=== PATIENT | female | born 1970 | race Hispanic/Latino ===

== ENCOUNTER 2018-01-11 13:15 | Emergency (ER) | payer OTHER ==
[2018-01-11 13:16] VITALS: BMI 43.2
[2018-01-11] MEDS ORDERED: Sodium Chloride 0.9% 1,000 ML IV ONE (13:34)
[2018-01-11 14:09] LABS: BASO # 0.1 K/uL (0.0-0.2); BASO % 0.8 % (0.0-2.0); EOS # 0.1 K/uL (0.0-0.7); EOS % 0.7 % (0.0-4.0); HEMOGLOBIN 13.5 g/dL (11.0-16.0); LYMPH # 1.5 K/uL (1.0-4.3); LYMPH % 15.9 % (20.0-40.0); MEAN CELL VOLUME 84.9 fL (81.0-99.0); MEAN CORPUSCULAR HEMOGLOBIN 28.4 pg (27.0-31.0); MEAN CORPUSCULAR HGB CONC 33.5 g/dL (33.0-37.0); MEAN PLATELET VOLUME 9.6 fL (7.2-11.7); MONO # 0.5 K/uL (0.0-0.8); MONO % 5.5 % (0.0-10.0); NEUT # 7.5 K/uL (1.8-7.0); NEUT % 77.1 % (50.0-75.0); NRBC % 0.1 % (0.0-2.0); RBC 4.76 Mil/uL (3.80-5.20); RED CELL DISTRIBUTION WIDTH 14.4 % (11.5-14.5); WHITE BLOOD COUNT 9.7 K/uL (4.8-10.8)
[2018-01-11 14:14] LABS: SQUAMOUS EPITHIAL 2 /hpf (0-5); URINE BACTERIA RARE (<OCC); URINE BILIRUBIN NEGATIVE (NEGATIVE); URINE BLOOD NEGATIVE (NEGATIVE); URINE CLARITY Clear (Clear); URINE COLOR Yellow (YELLOW); URINE GLUCOSE (UA) 3+ mg/dL (Normal); URINE LEUKOCYTE ESTERASE TRACE Leu/uL (Negative); URINE PROTEIN NEGATIVE (NEGATIVE); URINE UROBILINOGEN NORMAL mg/dL (0.2-1.0)
[2018-01-11 14:15] LABS: HCG,QUALITATIVE URINE NEGATIVE (NEGATIVE)
--- NOTE | 2018-01-11 14:15 | C.PDOC ---
History Of Present Illness 47 year old male presents to ED complaining of low blood pressure since yesterday when she visited her PMD. Patient is compliant with her medications and was admitted here from 12/19/17 to 12/20/17. Denies fever, chills, chest pain, cough, shortness of breath, nausea, vomiting, diarrhea, weakness, numbness, polyuria, polydipsia. Time Seen by Provider: 01/11/18 13:25 Chief Complaint (Nursing): High Blood Sugar History Per: Patient History/Exam Limitations: no limitations Onset/Duration Of Symptoms: Days Current Symptoms Are (Timing): Still Present Past Medical History Reviewed: Historical Data, Nursing Documentation, Vital Signs Vital Signs: Last Vital Signs Temp 98.4 F 01/11/18 13:19 Pulse 108 H 01/11/18 13:19 Resp 20 01/11/18 13:19 BP 88/59 L 01/11/18 13:19 Pulse Ox 99 01/11/18 13:19 - Medical History PMH: Anxiety, Arthritis, Asthma, Bipolar Disorder, Depression, Post Traumatic Stress Disorder Denies: Chronic Kidney Disease Surgical History: Tonsillectomy - [facility] Procedures EXCISION OF DESCENDING COLON, ENDO, DIAGN (12/11/17) EXCISION OF STOMACH, ENDO, DIAGN (12/11/17) Family History: States: No Known Family Hx - Social History Hx Alcohol Use: No Hx Substance Use: No - Immunization History Hx Tetanus Toxoid Vaccination: No Hx Influenza Vaccination: No Hx Pneumococcal Vaccination: No Review Of Systems Except As Marked, All Systems Reviewed And Found Negative. Constitutional: Negative for: Fever, Chills Cardiovascular: Negative for: Chest Pain Respiratory: Negative for: Cough, Shortness of Breath Gastrointestinal: Negative for: Nausea, Vomiting, Diarrhea Genitourinary: Positive for: Other ((-) polyuria, (-) polydipsia) Neurological: Negative for: Weakness, Numbness Physical Exam - Physical Exam Appears: Non-toxic, No Acute Distress, Other (Obese) Skin: Warm, Dry, Other (Plump) Oral Mucosa: Moist Neck: Supple Chest: Symmetrical, No Deformity Cardiovascular: Rhythm Regular, No Murmur Respiratory: Normal Breath Sounds, No Rales, No Rhonchi, No Wheezing Gastrointestinal/Abdominal: Soft, No Tenderness Extremity: Normal ROM Pulses: Left Radial: Normal (2/2), Right Radial: Normal (2/2), Left Dorsalis Pedis: Normal (2/2), Right Dorsalis Pedis: Normal (2/2) Neurological/Psych: Oriented x3 ED Course And Treatment - Laboratory Results Result Diagrams: 01/11/18 14:05 01/11/18 14:05 Lab Interpretation: Abnormal (+ elevated glu) Urine POC: Negative ECG: Interpreted By Me ECG Rhythm: Sinus Rhythm ECG Interpretation: Normal Rate From EC O2 Sat by Pulse Oximetry: 99 (RA) Pulse Ox Interpretation: Normal - Radiology CXR: Interpreted by Me CXR Interpretation: Yes: No Acute Disease Reevaluation Time: 15:24 Reassessment Condition: Improved - Physician Consult Information Outcome Of Conversation: 1500: d/w Dr. Barcenas, w/u reviewed, VS's stable, pt feels better. ok to d/c home encouraged to drink more fluids. opt f/u with PMD Medical Decision Making Medical Decision Making: polyuria/polydyspsia prob related to poor glu control and mild dehydration Same in 12/26 urine not c/w Diabetes insipidus PO fluids encouraged and tight glu control. 2/2 peripheral pulses and normal neuro vascular exam argue against signficant symptomatic dehydration/hypo-volemia mild blurry vision improved with glu control Disposition Doctor Will See Patient In The: Office Counseled Patient/Family Regarding: Studies Performed, Diagnosis - Disposition Referrals: [facility] [Outside] [facility] [place] [Outside] [facility] [Outside] Ad Barcenas MD [Staff Provider] - Gian Baker MD [Staff Provider] - Disposition: HOME/ ROUTINE Disposition Time: 15:26 Condition: GOOD Additional Instructions: tighter diet and insulin control of glucose encouraged drink plenty of fluids during the day miley labs/workup today (glucose elevated 313) Follow-up with Dr. Baker or Dr. Barcenas Instructions: Diabetes Diet , Diabetes in Older Adults Forms: [employer] (Mosotho) - Clinical Impression Clinical Impression: Diabetes mellitus, Dehydration symptoms - Scribe Statement The provider has reviewed the documentation as recorded by the Scribe Bandar Keven Provider Attestation: All medical record entries made by the Scribe were at my direction and personally dictated by me. I have reviewed the chart and agree that the record accurately reflects my personal performance of the history, physical exam, medical decision making, and the department course for this patient. I have also personally directed, reviewed, and agree with the discharge instructions and disposition.
[2018-01-11 14:27] VITALS: TEMP 98.4
[2018-01-11 14:30] LABS: ALB/GLOB RATIO 1.4 (1.0-2.1); ALBUMIN 4.4 g/dL (3.5-5.0); ALT/SGPT 28 U/L (9-52); AST/SGOT 23 U/L (14-36); BLOOD UREA NITROGEN 16 mg/dL (7-17); CALCIUM 9.5 mg/dl (8.6-10.4); GFR NON-AFRICAN AMERICAN > 60; LIPASE 42 U/L (23-300)
[2018-01-11 14:48] VITALS: BP 133/71; PULSE 90; RESP 18
--- NOTE | 2018-01-11 14:55 | RAD ---
Date of service: 01/11/2018 HISTORY: Diabetic COMPARISON: None available. FINDINGS: LUNGS: No active pulmonary disease. PLEURA: No significant pleural effusion identified, no pneumothorax apparent. CARDIOVASCULAR: No aortic atherosclerotic calcification present. Normal cardiac size. No pulmonary vascular congestion. OSSEOUS STRUCTURES: No significant abnormalities. VISUALIZED UPPER ABDOMEN: Normal. OTHER FINDINGS: None. IMPRESSION: No acute cardiopulmonary disease appreciated.
[2018-01-11] MEDS ORDERED: (Novolin R) Insulin Human Regular 100 units/ml vial IV STA (15:01)
[2018-01-11 15:21] VITALS: O2SAT 99
[2018-01-11] MEDS ORDERED: (Novolin R) Insulin Human Regular 100 units/ml vial ONE (15:22)
--- NOTE | 2018-01-14 15:39 | CARD ---
APPROVED REPORT Date of service: 01/11/2018 EKG Measurement Heart [id number] <Conclusion> Normal sinus rhythm Normal Electrocardiogram
== END 2018-01-11 15:52 | disposition home or self-care (01) ==
LOC: C.ER 13:15
DX: E11.9 Type 2 diabetes mellitus without complications (principal); E86.0 Dehydration
CPT/HCPCS: 71045; 80053; 81001; 82948; 83690; 84703; 85025; 93005; 96360; 99284; J7030

== ENCOUNTER 2018-02-01 13:03 | Emergency (ER) | payer OTHER ==
[2018-02-01 13:03] VITALS: BMI 43.2
[2018-02-01] MEDS ORDERED: Sodium Chloride 0.9% 1,000 ML IV ONE (15:15)
--- NOTE | 2018-02-01 15:15 | C.PDOC ---
History Of Present Illness 47 years old female with PMHx of diabetes, arthritis, asthma, and bipolar disorder presents to ED for complaints of dizziness, blurry vision and squeezing chest pain that began today. Patient describes symptoms worsen with head move ment. Patient also states Prior to experiencing symptoms she found her blood pressure to be 68/48 then she called her PMD which suggested for her to come to the ER. Patient reports she was admitted for similar complaints 2 weeks ago. Denies fever, chills, nausea, or vomiting. Patient also reports getting checked in the past for heart problems by a computer science teacher and exams were all negative. Patient admitted in the past for hypotension. PMD: * Gian Baker Time Seen by Provider: 02/01/18 14:53 Chief Complaint (Nursing): Dizziness/Lightheaded History Per: Patient History/Exam Limitations: no limitations Onset/Duration Of Symptoms: Hrs Current Symptoms Are (Timing): Still Present Associated Symptoms Preceding Syncopal Episode: No Predromal Symptoms (Sudden Onset) Seizure Or Post-ictal Symptoms: None Possible Causative Factor(s): Lightheaded W/Change In Head Position Fall Associated With With Symptoms: No Recent travel outside of the [place]: No - Symptoms Of CVA Recent Aspirin Use: Unknown Current Coumadin Use?: Unknown Recent Head Trauma: No Past Medical History Reviewed: Historical Data, Nursing Documentation, Vital Signs Vital Signs: Last Vital Signs Temp 98.8 F 02/01/18 13:35 Pulse 79 02/01/18 14:40 Resp 20 02/01/18 14:40 BP 88/49 L 02/01/18 14:40 Pulse Ox 100 02/01/18 14:40 - Medical History PMH: Anxiety, Arthritis, Asthma, Bipolar Disorder, Depression, Post Traumatic Stress Disorder Surgical History: Tonsillectomy - [facility] Procedures EXCISION OF DESCENDING COLON, ENDO, DIAGN (12/11/17) EXCISION OF STOMACH, ENDO, DIAGN (12/11/17) Family History: States: Unknown Family Hx - Social History Hx Alcohol Use: No Hx Substance Use: No - Immunization History Hx Tetanus Toxoid Vaccination: No Hx Influenza Vaccination: No Hx Pneumococcal Vaccination: No Review Of Systems Constitutional: Negative for: Fever, Chills Eyes: Positive for: Vision Change Cardiovascular: Positive for: Chest Pain Gastrointestinal: Negative for: Nausea, Vomiting, Diarrhea Skin: Negative for: Rash Neurological: Positive for: Dizziness. Negative for: Weakness, Numbness Physical Exam - Physical Exam Appears: Non-toxic, No Acute Distress, Other (Awake and alert. Cooperative. ) Skin: Normal Color, Warm, Dry, No Rash Head: Atraumatic, Normacephalic Eye(s): bilateral: Other (Conjunctiva [place] ) Oral Mucosa: Moist Neck: Normal ROM, Supple Chest: Symmetrical, No Tenderness Cardiovascular: Rhythm Regular, No Murmur Respiratory: Normal Breath Sounds, No Rales, No Rhonchi, No Wheezing Gastrointestinal/Abdominal: Soft, No Tenderness, No Distention, Other (Obese ) Extremity: Normal ROM Extremity: Bilateral: Atraumatic, Normal Color And Temperature, Normal ROM Pulses: Left Radial: Normal, Right Radial: Normal Neurological/Psych: Oriented x3, Normal Speech Gait: Steady ED Course And Treatment - Laboratory Results Result Diagrams: 02/01/18 15:35 02/01/18 15:35 O2 Sat by Pulse Oximetry: 100 (RA) Pulse Ox Interpretation: Normal Medical Decision Making Medical Decision Making: Plan: * IV fluids * Blood work * Urinalysis EKG: * Normal sinus rhythm 76 bpm * No ST elevations or depressions Disposition Counseled Patient/Family Regarding: Need For Followup - Disposition Disposition: HOME/ ROUTINE Disposition Time: 17:06 Condition: STABLE Additional Instructions: Follow up with your doctor in order to evaluate the cause of your low blood pressure. Instructions: Low Blood Pressure (DC) Forms: [facility] (Macanese), General Discharge Instructions - POA Present On Arrival: None - Clinical Impression Clinical Impression: Near syncope, Hypotension - Scribe Statement The provider has reviewed the documentation as recorded by the Ciprianoibglo Owens All medical record entries made by the Ciprianoibglo were at my direction and personally dictated by me. I have reviewed the chart and agree that the record accurately reflects my personal performance of the history, physical exam, medical decision making, and the department course for this patient. I have also personally directed, reviewed, and agree with the discharge instructions and disposition.
[2018-02-01 15:45] LABS: BASO % 0.3 % (0.0-2.0); EOS # 0.1 K/uL (0.0-0.7); EOS % 0.6 % (0.0-4.0); HEMOGLOBIN 12.7 g/dL (11.0-16.0); LYMPH # 1.6 K/uL (1.0-4.3); LYMPH % 17.6 % (20.0-40.0); MEAN CELL VOLUME 85.2 fL (81.0-99.0); MEAN CORPUSCULAR HEMOGLOBIN 28.5 pg (27.0-31.0); MEAN CORPUSCULAR HGB CONC 33.4 g/dL (33.0-37.0); MEAN PLATELET VOLUME 9.6 fL (7.2-11.7); MONO # 0.5 K/uL (0.0-0.8); MONO % 5.9 % (0.0-10.0); NEUT # 6.9 K/uL (1.8-7.0); NEUT % 75.6 % (50.0-75.0); RBC 4.46 Mil/uL (3.80-5.20); WHITE BLOOD COUNT 9.2 K/uL (4.8-10.8)
[2018-02-01 15:57] LABS: BLOOD UREA NITROGEN 14 mg/dL (7-17); CALCIUM 9.4 mg/dl (8.6-10.4); GFR NON-AFRICAN AMERICAN > 60
[2018-02-01 16:01] LABS: HCG,QUALITATIVE URINE NEGATIVE (NEGATIVE)
[2018-02-01 16:06] LABS: SQUAMOUS EPITHIAL 15 /hpf (0-5); URINE BILIRUBIN NEGATIVE (NEGATIVE); URINE BLOOD 3+ (NEGATIVE); URINE CLARITY Hazy (Clear); URINE COLOR Amber (YELLOW); URINE GLUCOSE (UA) 3+ mg/dL (Normal); URINE LEUKOCYTE ESTERASE NEG Leu/uL (Negative); URINE PROTEIN 2+ mg/dL (NEGATIVE)
[2018-02-01 17:36] VITALS: TEMP 98.2
[2018-02-01 19:01] VITALS: BP 132/73; PULSE 68; RESP 18; O2SAT 100
--- NOTE | 2018-02-03 21:15 | CARD ---
APPROVED REPORT Date of service: 02/01/2018 EKG Measurement Heart [id number] <Conclusion> Normal sinus rhythm Possible Left atrial enlargement Borderline ECG
== END 2018-02-01 19:01 | disposition home or self-care (01) ==
LOC: C.ER 13:03
DX: R55 Syncope and collapse (principal); I95.9 Hypotension, unspecified
CPT/HCPCS: 80048; 81001; 82948; 84484; 84703; 85025; 93005; 96360; 99285; J7030

== ENCOUNTER 2018-03-25 09:31 | Emergency (ER) | payer OTHER ==
[2018-03-25 09:31] VITALS: BMI 43.2
--- NOTE | 2018-03-25 10:42 | C.PDOC ---
History Of Present Illness 47 y/o female, with history of diabetes, comes in complaining of flu-like symptoms since 4 days ago consisting of headache, nausea, cough, congestion, decreased appetite, and diarrhea. States she thinks she's having fever but only at night, but patient has not taken her temperature. Patient has tried some antihistamines and motrin but hasn't had much relief. She admits she had sick contacts at home. She reports her blood sugar has been okay. HPI: Influenza Time Seen by Provider: 03/25/18 10:01 Chief Complaint: Flu-like Symptoms History Per: Patient Exam Limitations: no limitations Onset/Duration Of Symptoms: Days Past Medical History Reviewed: Historical Data, Nursing Documentation, Vital Signs Vital Signs: Last Vital Signs Temp 98.2 F 03/25/18 09:41 Pulse 87 03/25/18 09:41 Resp 18 03/25/18 09:41 BP 104/72 03/25/18 09:41 Pulse Ox 100 03/25/18 09:41 - Medical History PMH: Anxiety, Arthritis, Asthma, Bipolar Disorder, Depression, Post Traumatic Stress Disorder Denies: Chronic Kidney Disease Surgical History: Tonsillectomy - [facility] Procedures EXCISION OF DESCENDING COLON, ENDO, DIAGN (12/11/17) EXCISION OF STOMACH, ENDO, DIAGN (12/11/17) Family History: States: No Known Family Hx - Social History Hx Alcohol Use: No Hx Substance Use: No - Immunization History Hx Tetanus Toxoid Vaccination: No Hx Influenza Vaccination: No Hx Pneumococcal Vaccination: No Review Of Systems Constitutional: Positive for: Fever (subjective), Other (Decreased appetite) ENT: Positive for: Nose Congestion Cardiovascular: Negative for: Chest Pain Respiratory: Positive for: Cough. Negative for: Shortness of Breath Gastrointestinal: Positive for: Nausea, Diarrhea. Negative for: Vomiting Skin: Negative for: Rash Neurological: Positive for: Headache Physical Exam - Physical Exam Appears: Non-toxic, No Acute Distress Skin: Warm, Dry Head: Atraumatic, Normacephalic Eye(s): bilateral: Normal Inspection Ear(s): Bilateral: Normal Oral Mucosa: Moist Throat: Normal, No Erythema, No Exudate, Other (uvula midline) Neck: Supple Chest: Symmetrical Cardiovascular: Rhythm Regular, No Murmur Respiratory: Normal Breath Sounds, No Rales, No Rhonchi, No Wheezing Gastrointestinal/Abdominal: Soft, No Tenderness Extremity: Bilateral: Atraumatic, Normal Color And Temperature, Normal ROM Neurological/Psych: Oriented x3, Normal Speech Medical Decision Making Medical Decision Making: Plan: --Tylenol PO Patient medicated in the ED. Appears nontoxic, in no distress. Patient has had symptoms for over 72 hours, tamiflu would not be beneficial, so flu swab d eferred. Advised supportive care (NSAIDs, tylenol, fluids, rest). Return to the ED for any new or worsening symptoms. - ECG O2 Sat by Pulse Oximetry: 100 (RA) Pulse Ox Interpretation: Normal Disposition - Disposition Disposition: HOME/ ROUTINE Disposition Time: 11:52 Condition: STABLE Additional Instructions: STEFAN VILLEGAS, thank you for letting us take care of you today. Your provider was Ary Travis MD and you were treated for DIARRHEA/BODY PAIN. The emergency medical care you received today was directed at your acute symptoms. If you were prescribed any medication, please fill it and take as directed. It may take several days for your symptoms to resolve. Return to the Emergency Department if your symptoms worsen, do not improve, or if you have any other problems. Please contact your doctor or call one of the physicians/clinics you have been referred to that are listed on the Patient Visit Information form that is included in your discharge packet. Bring any paperwork you were given at discharge with you along with any medications you are taking to your follow up visit. Our treatment cannot replace ongoing medical care by a primary care provider outside of the emergency department. Thank you for allowing the [facility] team to be part of your care today. If you had an X-Ray or CT scan: A Radiologist will review the ED reading if any change in treatment is needed we will contact you. If you had a blood, urine, or wound culture: It will take several days for the results, if any change in treatment is needed we will contact you. If you had an STI test: It will take 48 hours for the results. Please call after 1 week if you have not heard back. Instructions: Viral Syndrome (DC) Forms: [employer] (Uzbek) - Clinical Impression Clinical Impression: Viral syndrome - Scribe Statement The provider has reviewed the documentation as recorded by the Jolie Gastelum Provider Attestation: All medical record entries made by the Scribe were at my direction and personally dictated by me. I have reviewed the chart and agree that the record accurately reflects my personal performance of the history, physical exam, medical decision making, and the department course for this patient. I have also personally directed, reviewed, and agree with the discharge instructions and disposition.
[2018-03-25 11:45] VITALS: BP 95/66; PULSE 73; RESP 20; TEMP 98.5
[2018-03-25 18:23] VITALS: O2SAT 100
== END 2018-03-25 12:09 | disposition home or self-care (01) ==
LOC: C.ER 09:31
DX: B34.9 Viral infection, unspecified (principal)

== ENCOUNTER 2018-06-22 14:42 | Emergency (ER) | payer OTHER ==
[2018-06-22 14:43] VITALS: BMI 43.2
[2018-06-22] MEDS ORDERED: Sodium Chloride 0.9% 1,000 ML IV ONE ×2 (15:15)
--- NOTE | 2018-06-22 15:22 | C.PDOC ---
History Of Present Illness 47 y/o female presents to ED with chief complaint of generalized weakness and blurred vision. Patient has history of diabetes and blood sugar level has not been under control for the last few days. Patient took 8 units of regular in sulin today. Denies fever or chest pain. Time Seen by Provider: 06/22/18 14:57 Chief Complaint (Nursing): High Blood Sugar History Per: Patient History/Exam Limitations: no limitations Onset/Duration Of Symptoms: Hrs Current Symptoms Are (Timing): Still Present Past Medical History Reviewed: Historical Data, Nursing Documentation, Vital Signs Vital Signs: Last Vital Signs Temp 98.8 F 06/22/18 14:46 Pulse 80 06/22/18 14:46 Resp 20 06/22/18 14:46 BP 95/68 L 06/22/18 14:46 Pulse Ox 98 06/22/18 14:46 - Medical History PMH: Anxiety, Arthritis, Asthma, Bipolar Disorder, Depression, Post Traumatic Stress Disorder Denies: Chronic Kidney Disease Surgical History: Tonsillectomy - [facility] Procedures EXCISION OF DESCENDING COLON, ENDO, DIAGN (12/11/17) EXCISION OF STOMACH, ENDO, DIAGN (12/11/17) Family History: States: No Known Family Hx - Social History Hx Tobacco Use: No Hx Alcohol Use: No Hx Substance Use: No - Immunization History Hx Tetanus Toxoid Vaccination: No Hx Influenza Vaccination: No Hx Pneumococcal Vaccination: No Review Of Systems Except As Marked, All Systems Reviewed And Found Negative. Constitutional: Positive for: Weakness. Negative for: Fever Eyes: Positive for: Vision Change (blurry vision) Cardiovascular: Negative for: Chest Pain Respiratory: Negative for: Shortness of Breath Physical Exam - Physical Exam Appears: Non-toxic, No Acute Distress Skin: Warm, Dry Head: Atraumatic, Normacephalic Eye(s): bilateral: Normal Inspection Oral Mucosa: Moist Neck: Supple Cardiovascular: Rhythm Regular, No Murmur Respiratory: Normal Breath Sounds, No Rales, No Rhonchi, No Wheezing Gastrointestinal/Abdominal: Soft, No Tenderness Extremity: No Pedal Edema Extremity: Left: Atraumatic, Bilateral: Normal ROM Neurological/Psych: Oriented x3, Normal Speech, Normal Cognition ED Course And Treatment - Laboratory Results Result Diagrams: 06/22/18 15:54 06/22/18 15:54 Lab Interpretation: No Acute Changes ECG: Interpreted By Me ECG Rhythm: Sinus Rhythm (VR 71, no ST elevation) O2 Sat by Pulse Oximetry: 98 (RA) Pulse Ox Interpretation: Normal Medical Decision Making Medical Decision Making: Plan: --EKG --Labs --Urine Culture --UA --IV fluids Disposition Counseled Patient/Family Regarding: Studies Performed, Diagnosis, Need For Foll owup - Disposition Disposition: HOME/ ROUTINE Disposition Time: 17:00 Condition: STABLE Instructions: Hyperglycemia, Adult, Blood Glucose Monitoring Forms: [employer] ([place]ana), Work Excuse - POA Present On Arrival: None - Clinical Impression Clinical Impression: Hyperglycemia - Scribe Statement The provider has reviewed the documentation as recorded by the Jolie Gastelum Provider Attestation: All medical record entries made by the Ciprianoibe were at my direction and personally dictated by me. I have reviewed the chart and agree that the record accurately reflects my personal performance of the history, physical exam, medical decision making, and the department course for this patient. I have also personally directed, reviewed, and agree with the discharge instructions and disposition.
[2018-06-22] MEDS ORDERED: Sodium Chloride 0.9% 2,000 ML ONE (15:43)
[2018-06-22 16:02] LABS: BASO % 0.3 % (0.0-2.0); EOS % 0.3 % (0.0-4.0); HEMOGLOBIN 12.1 g/dL (11.0-16.0); LYMPH # 1.2 K/uL (1.0-4.3); LYMPH % 19.6 % (20.0-40.0); MEAN CELL VOLUME 84.6 fL (81.0-99.0); MEAN CORPUSCULAR HEMOGLOBIN 27.6 pg (27.0-31.0); MEAN CORPUSCULAR HGB CONC 32.6 g/dL (33.0-37.0); MONO # 0.4 K/uL (0.0-0.8); MONO % 7.2 % (0.0-10.0); NEUT # 4.6 K/uL (1.8-7.0); NEUT % 72.6 % (50.0-75.0); RBC 4.39 Mil/uL (3.80-5.20); RED CELL DISTRIBUTION WIDTH 14.5 % (11.5-14.5); WHITE BLOOD COUNT 6.3 K/uL (4.8-10.8)
[2018-06-22 16:05] LABS: SQUAMOUS EPITHIAL 2 /hpf (0-5)
[2018-06-22 16:09] LABS: URINE BILIRUBIN NEGATIVE (NEGATIVE); URINE BLOOD LARGE (NEGATIVE); URINE CLARITY HAZY (Clear); URINE COLOR YELLOW (YELLOW); URINE GLUCOSE (UA) 4+ mg/dL (Normal); URINE PROTEIN TRACE mg/dL (NEGATIVE); URINE UROBILINOGEN 0.2 mg/dL (0.2-1.0)
[2018-06-22 16:10] LABS: URINE LEUKOCYTE ESTERASE NEG Leu/uL (Negative)
[2018-06-22 16:25] LABS: ALB/GLOB RATIO 1.5 (1.0-2.1); ALBUMIN 4.1 g/dL (3.5-5.0); BLOOD UREA NITROGEN 18 mg/dL (7-17); CALCIUM 9.5 mg/dl (8.6-10.4); GFR NON-AFRICAN AMERICAN > 60
[2018-06-22 16:40] LABS: ALT/SGPT < 6 U/L (9-52); AST/SGOT 22 U/L (14-36)
[2018-06-22 18:05] VITALS: BP 112/69; PULSE 78; RESP 18; TEMP 98.6; O2SAT 100
--- NOTE | 2018-06-23 15:12 | CARD ---
APPROVED REPORT Date of service: 06/22/2018 EKG Measurement Heart [id number] <Conclusion> Normal sinus rhythm Normal ECG
== END 2018-06-22 18:06 | disposition home or self-care (01) ==
LOC: C.ER 14:42
DX: E11.65 Type 2 diabetes mellitus with hyperglycemia (principal); Z79.4 Long term (current) use of insulin
CPT/HCPCS: 80053; 81001; 82009; 82948; 85025; 87086; 87181; 93005; 96360; 99285; J7030